=== PATIENT | female | born 1995 | race Caucasian/White ===

== ENCOUNTER 2017-07-25 09:30 | Outpatient (CLI) | payer OTHER ==
--- NOTE | 2017-07-25 10:31 | Progress Note ---
Progress Note Date of Service Jul 25, 2017. Progress Note Outpatient Note 21 F P0000 at 40.6 weeks seen in L&D to r/o labor. No contractions noted on monitor. CErvix 1/50/-2/posterior. FHT Cat 1. GBS is negative. Will d/c home. Patient is scheduled for IOL in AM and is to call then. Istructions to call back if in labor or any change.
[2017-07-26] MEDS ORDERED: PRENTAB26 PO (09:50)
== END 2017-07-25 11:00 | disposition home or self-care (01) ==
LOC: C.OPB 09:30 → C.LD 09:31 → C.OPB 11:00
PROVIDERS: ATTEND Obstetrics & Gynecology
DX: Z34.03 Encounter for supervision of normal first pregnancy, third trimester (principal); Z3A.40 40 weeks gestation of pregnancy

== ENCOUNTER 2017-07-26 08:46 | Inpatient (IN) | payer OTHER ==
[~2017-07-26] VITALS: Ht 175.3 cm; Wt 102.1 kg
[2017-07-26] MEDS ORDERED: LACTATED RINGER'S 1000ML 1,000 ML IV PRN (09:19)
[2017-07-26] MEDS ORDERED: LACTATED RINGER'S 1000ML 500 ML IV PRN ×2 (09:35→11:24)
[2017-07-26] MEDS ORDERED: OXYTOCIN 30 UNITS/500ML NSS IV PRN ×2 (09:45→21:45)
[2017-07-26 09:50] VITALS: Ht 175.3 cm; Wt 102.1 kg
[2017-07-26] MEDS ORDERED: PRENTAB26 PO (09:50)
[2017-07-26] MEDS ORDERED: BUPIVACAINE 0.25% 30 ML VIAL ONE (10:10)
[2017-07-26] MEDS ORDERED: FENTANYL CITRATE INJ 50 MCG/1 ML 2 ML VIAL ONE (10:10)
[2017-07-26] MEDS ORDERED: FENTANYL 2MCG/ML ROPIV 1.25MG/ML 100ML BAG EPI ONE (10:10)
[2017-07-26] MEDS ORDERED: EpHEDrine SULFATE INJ 50 MG/ML AMP ONE (10:10)
[2017-07-26 10:13] LABS: HEMATOCRIT 38.2 % (37-47); MEAN CELL VOLUME 98.2 fL (80-100); MEAN CORPUSCULAR HEMOGLOBIN 32.1 pg (25-34); MEAN CORPUSCULAR HGB CONC 32.7 g/dl (32-36); MEAN PLATELET VOLUME 10.9 fL (7.4-10.4); PLATELET COUNT 155 K/uL (130-400); RED BLOOD COUNT 3.89 M/uL (4.2-5.4); WHITE BLOOD COUNT 9.74 K/uL (4.8-10.8)
[2017-07-26] MEDS: LACTATED RINGER'S 1000ML 1,000 ML IV SCH ×3 (11:03→17:58)
[2017-07-26] MEDS ORDERED: NALOXONE HCL INJ 1 MG in SODIUM CHLORIDE 0.9% 1000ML 1,000 ML IV PRN (11:24)
[2017-07-26] MEDS ORDERED: FENTANYL 2MCG/ML ROPIV 1.25MG/ML 100ML BAG EPI PRN (11:30)
[2017-07-26] MEDS ORDERED: NALOXONE HCL INJ 0.4 MG/1 ML VIAL/CARP IV PRN (11:30)
[2017-07-26] MEDS ORDERED: EpHEDrine SULFATE INJ 50 MG/ML AMP IV PRN (11:30)
[2017-07-26] MEDS ORDERED: NALBUPHINE HCL INJ 10 MG/ML AMP IV PRN (11:30)
[2017-07-26] MEDS ORDERED: PROMETHAZINE HCL INJ 6.25 MG in SODIUM CHLORIDE 0.9% 50ML 50 ML IV PRN (11:30)
[2017-07-26] MEDS ORDERED: ONDANSETRON INJ 2 MG/ML 2 ML VIAL IV PRN ×2 (11:30→21:45)
[2017-07-26] MEDS ORDERED: DiphenhydrAMINE HCL 50 MG/ML VIAL IV PRN (11:30)
[2017-07-26] MEDS ORDERED: INFLUENZA ADMINISTRATION CHARGE ONE (12:30)
[2017-07-26] MEDS ORDERED: INFLUENZA VIRUS QUAD VACCINE 0.5 ML SYR IM. ONE (12:30)
[2017-07-26] MEDS ORDERED: CALCIUM CARBONATE 500 MG CHEWABLE PO ONE (18:00)
[2017-07-26] MEDS ORDERED: NURSING VERBAL MED ORDER ONE ×2 (18:00→19:30)
[2017-07-26] MEDS ORDERED: ACETAMINOPHEN 325 MG TAB PO ONE (19:45)
[2017-07-26] MEDS ORDERED: METHYLERGONOVINE MALEATE 0.2 MG/ML AMP ONE (21:13)
[2017-07-26] MEDS ORDERED: SUPERCREAM 0.870 % 15GM JAR EXT PRN (21:45)
[2017-07-26] MEDS ORDERED: METHYLERGONOVINE MALEATE 0.2 MG/ML AMP IM ONE (21:45)
[2017-07-26] MEDS ORDERED: OXYCODONE/ACETAMINOPHEN 5-325 TAB PO PRN (21:45)
[2017-07-26] MEDS ORDERED: BENZOCAINE 20% AER SPR 82.5 GM CAN EXT PRN (21:45)
[2017-07-26] MEDS ORDERED: LANOLIN OINT EXT PRN ×2 (21:45)
[2017-07-26] MEDS ORDERED: ACETAMINOPHEN/CODEINE 300/30MG TAB PO PRN ×2 (21:45)
[2017-07-26] MEDS ORDERED: HYDROCORTISONE ACETATE 25 MG SUPP PR PRN (21:45)
[2017-07-26] MEDS ORDERED: ACETAMINOPHEN 325 MG TAB PO PRN (21:45)
[2017-07-26] MEDS ORDERED: KETOROLAC TROMETHAMINE 30 MG/ML VIAL IV PRN (21:45)
[2017-07-26] MEDS ORDERED: DIPHTHERIA/TETANUS/PERTUSSIS 0.5 ML SYR/VIAL IM. ONE (21:45)
--- NOTE | 2017-07-26 21:53 | DELIVERY SUMMARY ---
DATE OF OPERATION: 07/26/2017 TIME OF DELIVERY: 2108 DELIVERY OF PLACENTA: 2110 DELIVERY NOTE: The patient is a 21-year-old 1 para 0 at 41 weeks gestation, who was admitted to labor and delivery on the morning of 07/26/2017, for a scheduled induction of labor secondary to postdates. On admission, she was found to be 5 cm, 80% effaced and -1 station. Oxytocin per protocol was used for labor induction. She received an epidural for anesthesia. Artificial rupture of membranes was performed at 1322 with clear amniotic fluid noted. She reached complete dilation at 1852. She pushed to delivery at 2108. She delivered a viable male in the right occiput anterior position to an intact perineum. The baby was delivered and placed on patient's abdomen. Cord was clamped x2 and cut. Apgars were 8 at one minute and 9 at five minutes. Please see nursing notes for further baby assessment. Cord blood was then obtained and an intact placenta with 3-vessel cord was delivered. Oxytocin infusion was then begun. The lower uterine segment and vagina were cleared of any blood clot and debris. She was given Methergine 0.25 mg IM due to increased bleeding. Uterine massage was performed. Excellent uterine tone was noted. Once bleeding was controlled, exploration of the perineum noted a first degree vaginal laceration and a right periurethral laceration, both were injected with lidocaine for anesthesia and were repaired with 2-0 Vicryl and 3-0 Vicryl suture in continuous running fashion. Excellent hemostasis was noted. No other lacerations were seen. ESTIMATED BLOOD LOSS: 350 mL. All sponge, instrument and needle counts were found to be correct x2. Both patient and baby tolerated the delivery well and were in Recovery with stable vital signs. I attest to the content of the Intraoperative Record and any orders documented therein. Any exception s are noted below.
--- NOTE | 2017-07-27 03:22 | Anesthesia Procedure Note ---
Anesthesia Epidural Removal Nt Date & Time Jul 27, 2017 at 03:22 Vital Signs Pain Intensity: 0.0 Notes Mental Status: alert / awake / arousable, participated in evaluation Nausea / Vomiting: adequately controlled Pain: adequately controlled Airway Patency, RR, SpO2: stable & adequate BP & HR: stable & adequate Hydration State: stable & adequate Neuraxial Anesthesia: was administered Anesthetic Complications: no major complications apparent, pt satisfied with anesthetic care Epidural: removed without complications, with tip intact
[2017-07-27] MEDS: PRENATAL VITAMIN TAB PO SCH (07:40)
[2017-07-27] MEDS: DOCUSATE SODIUM 100 MG CAP PO SCH ×2 (07:40→19:49)
[2017-07-27] MEDS: IBUPROFEN 600 MG TAB PO PRN ×2 (07:40→16:12)
[2017-07-27] MEDS: FERROUS SULFATE 325 MG TAB PO SCH (07:40)
[2017-07-27 07:53] VITALS: BP 116/56; PULSE 107; TEMP 37.4
[2017-07-27 07:58] LABS: HEMATOCRIT 35.2 % (37-47)
--- NOTE | 2017-07-27 09:40 | OB/GYN Progress Note ---
MANGLE ROLLER Progress Note Date of Service Jul 27, 2017. Objective Vital Signs Date Time Temp Pulse Resp B/P (MAP) Pulse Ox O2 Delivery O2 Flow Rate FiO2 07/27/17 07:53 Room Air 07/27/17 07:53 37.4 107 20 116/56 (76) Room Air Physical Exam General Appearance: WELL-APPEARING, NO APPARENT DISTRESS Abdomen: non tender Fundus: Firm Extremities: normal range of motion, non-tender, normal inspection, no pedal edema Laboratory Results Last 24 Hours Test 07/26/17 09:59 07/27/17 07:35 White Blood Count 9.74 K/uL Red Blood Count 3.89 M/uL Hemoglobin 12.5 g/dL 11.4 g/dL Hematocrit 38.2 % 35.2 % Mean Corpuscular Volume 98.2 fL Mean Corpuscular Hemoglobin 32.1 pg Mean Corpuscular Hemoglobin Concent 32.7 g/dl RDW Standard Deviation 50.2 fL RDW Coefficient of Variation 14.0 % Platelet Count 155 K/uL Mean Platelet Volume 10.9 fL Assessment and Plan Post- Day Number: 1 Continue Routine Care: tent d/c in AM
[2017-07-27 13:24] VITALS: BP 119/68; PULSE 107; TEMP 36.7
[2017-07-27 15:45] VITALS: BP 112/72; PULSE 104; TEMP 36.9; O2SAT 98
[2017-07-27] MEDS ORDERED: BISACODYL 5 MG TABEC PO SCH (20:00)
[2017-07-28 00:15] VITALS: BP 104/64; PULSE 84; TEMP 36.5
[2017-07-28] MEDS ORDERED: BISACODYL 10 MG SUPP PR PRN (07:00)
[2017-07-28 07:54] LABS: MEAN CELL VOLUME 96.9 fL (80-100); MEAN CORPUSCULAR HEMOGLOBIN 32.5 pg (25-34); MEAN CORPUSCULAR HGB CONC 33.5 g/dl (32-36); MEAN PLATELET VOLUME 10.7 fL (7.4-10.4); PLATELET COUNT 131 K/uL (130-400); WHITE BLOOD COUNT 9.18 K/uL (4.8-10.8)
[2017-07-28 08:00] VITALS: BP 118/71; PULSE 78; TEMP 36.8
[2017-07-28] MEDS: FERROUS SULFATE 325 MG TAB PO SCH (08:21)
[2017-07-28] MEDS: DOCUSATE SODIUM 100 MG CAP PO SCH (08:21)
[2017-07-28] MEDS: PRENATAL VITAMIN TAB PO SCH (08:21)
--- NOTE | 2017-07-28 10:37 | OB/GYN Progress Note ---
FANCY STITCHER Progress Note Date of Service Jul 28, 2017. Subjective conversation w/ patient, physical exam Ambulation: ambulating normally Voiding: no voiding problems Passing Gas: Yes Diet Tolerance: Regular Diet Lochia: Moderate Feeding Type: Breast Feeding Review of Systems Constitutional: No fever, No chills, No sweats, No weight loss, No weakness, No fatigue, No problem reported Respiratory: No cough, No sputum, No wheezing, No shortness of breath, No dyspnea on exertion, No dyspnea at rest, No hemoptysis, No problem reported Cardiac: No chest pain, No orthopnea, No PND, No edema, No claudication, No palpitations, No problem reported Breast: No see HPI, No breast lump, No change in shape, No nipple discharge, No breast pain, No problem reported Abdomen: No pain, No nausea, No vomiting, No diarrhea, No constipation, No GI bleeding, No problem reported Female : No see HPI, No dysuria, No urinary frequency, No hematuria, No incontinence, No abnormal vaginal bleeding, No vaginal discharge, No problem reported Objective Vital Signs Date Time Temp Pulse Resp B/P (MAP) Pulse Ox O2 Delivery O2 Flow Rate FiO2 07/28/17 00:15 36.5 84 16 104/64 (77) Room Air 07/28/17 00:15 Room Air 07/27/17 15:45 Room Air 07/27/17 15:45 36.9 104 18 112/72 (85) 98 Room Air 07/27/17 13:24 36.7 107 18 119/68 (85) Physical Exam General Appearance: WELL-APPEARING, WD/WN, NO APPARENT DISTRESS Respiratory/Chest: chest non-tender, lungs clear, normal breath sounds, no respiratory distress, no accessory muscle use Cardiovascular: regular rate, rhythm, no edema, no gallop, no JVD, no murmur Abdomen: normal bowel sounds, non tender, soft, no organomegaly, no pulsatile mass Fundus: Firm Extremities: normal range of motion, non-tender, normal inspection, no pedal edema, no calf tenderness Laboratory Results Last 24 Hours Test 07/28/17 07:14 White Blood Count 9.18 K/uL Red Blood Count 3.20 M/uL Hemoglobin 10.4 g/dL Hematocrit 31.0 % Mean Corpuscular Volume 96.9 fL Mean Corpuscular Hemoglobin 32.5 pg Mean Corpuscular Hemoglobin Concent 33.5 g/dl RDW Standard Deviation 48.5 fL RDW Coefficient of Variation 13.8 % Platelet Count 131 K/uL Mean Platelet Volume 10.7 fL Assessment and Plan Post- Day Number: 2 Continue Routine Care: PPD #2 pt doing well d/c home with instructions
[2017-07-28] MEDS ORDERED: MTR600X PO (10:38)
--- NOTE | 2017-07-28 10:40 | Discharge Instructions ---
Discharge Instructions Date of Service Jul 28, 2017. Admission Reason for Admission: Induction Discharge Discharge Diagnosis / Problem: Discharge Goals Goal(s): Routine recovery after delivery, Specific Goal(s) Activity Recommendations Activity Limitations: as noted below ACTIVITY RECOMMENDATIONS: * Gradual return to full activity over the next 2-3 weeks. * No lifting - nothing heavier than baby over the next 2-3 weeks. * Do not engage in vigorous exercise, sexual activity or sports until cleared by your physician. * Do not drive or operate any motorized equipment until cleared by your physician. * You may shower/bathe daily. BREAST CARE: If you are not breast feeding: * Wear a supportive bra 24 hours a day for one to two weeks. * Avoid stimulating your breasts and nipples as much as possible during the first few weeks after delivery. * When taking a shower, have the warm water hit your back, not breasts. * When your breasts feel full, apply ice packs. Usually three to four times a day helps ease the discomfort. * Take a mild pain medication (Tylenol/Motrin) when you are uncomfortable. If breast feeding: * Use breast milk to lubricate nipples. Lansinoh cream may be used for sore nipples. You do not need to remove cream prior to breast feeding. If using a different brand of cream, check the label for directions regarding removal of cream prior to nursing. * Wear a supportive bra. * If having problems with breasts or breast feeding, call a service delivery management consultant or your health care provider. EPISIOTOMY CARE: After delivery, if you have an episiotomy (stitches), the following steps will ease discomfort and aid healing. * For the first 24 hours after delivery, place ice packs next to your episiotomy to help reduce swelling. * After the first 24 hour-period, sitz baths, either portable or in the tub, are suggested. A shower with a shower arm sprayed over the episiotomy may be comforting. * Shanti care should be done after each voiding and bowel movement. Squirt warm water from a plastic bottle over the perineum (region of the body between the anus and urinary opening) and pat dry. * Use Dermoplast to ease discomfort. Shake container. [place] directly over the episiotomy. * Place a Tucks on a clean sanitary pad next to your episiotomy. OVER THE COUNTER MEDICATION: * For discomfort or pain, you may use Acetaminophen (Tylenol), Ibuprofen (Advil ), or Naproxen (Aleve) following the package directions. * For constipation you may use Colace following the package directions. SPECIAL CARE INSTRUCTIONS: When you are discharged from the hospital, it is important for you to follow the instructions listed below: * During the first week at home, you should be able to care for yourself and your baby. In addition, the usual light household activities are encouraged. * Limit your activities to the way you feel. Do not try to clean the house or move furniture. Be sensible. * If you actively engage in sports and have done so up until the time of your delivery, you may resume these activities as soon as you feel able. This may take up to one month or even longer. Use good judgment. * Continue to take your vitamins for at least six weeks after the of your baby. * Your diet need not be limited unless you were on a special diet before your delivery. Breast-feeding mothers need around 2500 calories per day and at least 64-80 ounces of fluid per day (8 to 10 glasses). * You should eat foods from the four major food groups. Crash diets or fad diets are to be avoided. Eating lean meats, fresh fruits and vegetables, low-fat dairy products, high fiber foods and a regular exercise program, will help you get back to your pre- weight without putting your health at risk. * Constipation is sometimes a problem after delivery. Take a mild laxative as needed. If breast feeding, Milk of Magnesia is acceptable to use. You may use a suppository or Fleets enema if no episiotomy. * A daily shower or tub bath is suggested. Be sure to thoroughly and gently dry the perineum. * A bloody vaginal discharge will usually continue until around four weeks post . A small amount of bleeding may continue for as long as six weeks. Vaginal discharge changes from the bright red bleeding after delivery to pink then brownish and finally yellowish-pink before becoming white and disappearing. * Bleeding may increase with activity. Your first period may come in 4-8 weeks. If you are breast feeding, your period may be delayed even longer. * [place] (sex) can begin whenever both you and your partner feel comfortable and do not have any form of genital infection. It is recommended that you wait until after your return appointment and discuss with your physician. If you have questions, please talk to your health care practitioner. A condom should be used to prevent infection and . * Foreplay, gentle intercourse and lubrication is very important the first several times to prevent pain. A water-based lubricant such as K-Y jelly or Astroglide may be used. * Tampons may be used six weeks after delivery. * Douching should be avoided for 6 weeks after delivery. * If you have RH negative blood and your baby is RH positive, you will receive RHOGAM by injection prior to discharge. The nurse will give you a card to keep with you that has the date and place that you received RHOGAM after delivery. * During your care, you had a Rubella screen done to check for the presence of rubella antibodies in your blood. If your test was negative, you will receive a Rubella vaccine prior to discharge. This vaccine may cause a fever, soreness at the injection site and flu-like symptoms. If these symptoms persist, notify your health care practitioner. is not advised for three months after a Rubella vaccine. There is a higher chance of having a baby with defects if conceived within three months of getting the vaccine. * If you were discharged 24 hours from delivery or before 48 hours: Visiting nurses will come to your home 48 hours after discharge to assess you and your baby. The visiting nurse will meet with you while you are in the hospital to arrange a time and get directions to your home. * Verbalizes understanding of car seat law as reviewed with patient nursing. * Car Seat hand-out given and reviewed with patient by nursing. * Shaken baby information reviewed with patient by nursing. Call you doctor if: * Heavy bleeding (saturating several pads an hour) or passing clots the size of your fist. * A fever >101 degrees F (38.3 degrees C) on two occasions four hours apart and/or chills. * Unusual pain in the pelvic or vaginal areas. * "Baby Blues" lasting longer than two weeks. If you have any questions or concerns, call your health care practitioner at . FOLLOW-UP VISIT: * Please call the office at to schedule a 6 week examination. It is important you keep this appointment. * It is important for you to make arrangements for either yearly or twice yearly check-ups thereafter. . Current Hospital Diet Patient's current hospital diet: Regular OB Diet Discharge Diet Recommended Diet: Regular Diet Pending Studies Studies pending at discharge: no Medical Emergencies . Who to Call and When: Medical Emergencies: If at any time you feel your situation is an emergency, please call 911 immediately. . Non-Emergent Contact Non-Emergency issues call your: Specialist . . "Provider Documentation" section prepared by Cecilio Smith. . VTE Core Measure Inpt VTE Proph given/why not?: Treatment not indicated
[2017-07-28 14:05] VITALS: BP_DIAS 71; PULSE 78; TEMP 36.8
== END 2017-07-28 14:45 | disposition home or self-care (01) | DRG 775 ==
LOC: C.LD 08:46 → C.OBG 07-27 16:06
PROVIDERS: ADMIT Obstetrics & Gynecology; ATTEND Obstetrics & Gynecology
PROC: 0UQMXZZ Repair Vulva, External Approach (ICD-10-PCS; principal; 2017-07-26)
PROC: 10E0XZZ Delivery of Products of Conception, External Approach (ICD-10-PCS; principal; 2017-07-26)
PROC: 3E033VJ Introduction of Other Hormone into Peripheral Vein, Percutaneous Approach (ICD-10-PCS; 2017-07-26)
PROC: 10903ZC Drainage of Amniotic Fluid, Therapeutic from Products of Conception, Percutaneous Approach (ICD-10-PCS; 2017-07-26)
DX: O48.0 Post-term pregnancy (principal); O71.82 Other specified trauma to perineum and vulva; Z3A.41 41 weeks gestation of pregnancy; Z37.0 Single live birth

== ENCOUNTER 2022-01-16 04:55 | Inpatient (IN) ==
[2022-01-16] MEDS ORDERED: OXYTOCIN 30 UNITS/500 ML BAG IV PRN ×3 (05:16→14:58)
[2022-01-16] MEDS: LACTATED RINGER'S 1,000 ML IV PRN ×2 (05:38→06:40)
[2022-01-16 05:46] LABS: Hematocrit (blood only) 38.8 % (37-47); Hemoglobin 13.1 g/dL (12.0-16.0); Mean Corpuscular Hemoglobin 32.4 pg (25-34); Mean Corpuscular Hgb Conc 33.8 g/dL (32-36); Mean Platelet Volume 10.5 fL (7.4-10.4); Platelet Count 189 K/uL (130-400); RDW Coefficient of Variation 14.1 % (11.5-14.5); RDW Standard Deviation 49.3 fL (36.4-46.3); Red Blood Count 4.04 M/uL (4.2-5.4); White Blood Count 10.48 K/uL (4.8-10.8)
[2022-01-16] MEDS ORDERED: fentaNYL citrate 100 MCG/2 ML VIAL ONE (05:50)
[2022-01-16] MEDS ORDERED: BUPIVACAINE 0.25% 30 ML VIAL ONE (05:50)
[2022-01-16] MEDS ORDERED: fentaNYL 2MCG/ML ROPIVACAINE 1.25MG/ML 100 ML BAG EPI ONE (05:50)
[2022-01-16] MEDS ORDERED: SODIUM CHLORIDE 0.9% INJ 10 ML VIAL ONE (05:50)
[2022-01-16] MEDS ORDERED: ePHEDrine sulfate 50 MG/ML AMP ONE (05:50)
[2022-01-16] MEDS ORDERED: ePHEDrine sulfate 50 MG/ML AMP IV PRN (06:44)
[2022-01-16] MEDS ORDERED: NALOXONE HCL 0.4 MG/1 ML VIAL/CARP IV PRN (06:44)
[2022-01-16] MEDS ORDERED: NALOXONE HCL 1 MG in SODIUM CHLORIDE 0.9% 1000ML 1,000 ML IV PRN (06:44)
[2022-01-16] MEDS ORDERED: fentaNYL 2MCG/ML ROPIVACAINE 1.25MG/ML 100 ML BAG EPI PRN (06:44)
[2022-01-16] MEDS ORDERED: NALBUPHINE HCL INJ 10 MG/ML AMP IV PRN (06:44)
[2022-01-16] MEDS ORDERED: ONDANSETRON INJ 2 MG/ML 2 ML VIAL IV PRN (06:44)
[2022-01-16] MEDS ORDERED: diphenhydrAMINE 50 MG/ML VIAL IV PRN (06:44)
--- NOTE | 2022-01-16 06:44 | Anesthesiology Consultation ---
Date of Service January 16, 2022 Assessment & Plan Chart Review Chart Review: Patient NOT seen in Pre Admission Testing and Acceptable Risk for Labor Epidural Consults Requested none ASA ASA2 Proposed Anesthesia Anesthesia Type: Labor Epidural Risk / Benefits Reviewed With: PT / POA / Parent / Guardian, Accepts Plan and Informed Consent Obtained History Height/Weight Height: 5 ft 9 in Weight: 109.769 kg Allergies Allergy/AdvReac Type Severity Reaction Status Date / Time No Known Allergies Allergy Unverified 07/26/17 09:48 Medications Home Medications Medication Instructions Recorded Confirmed Last Taken ondansetron HCl 4 mg tablet 4 mg PO Q6H PRN 01/16/22 01/16/22 Unknown vit no.95-ferrous 1 tab PO DAILY 01/16/22 01/16/22 01/15/22 fumarate 28 mg-folic acid 800 mcg tablet () Active Medications Generic Name Dose Route Start Last Admin Trade Name Freq PRN Reason Stop Dose Admin Lactated Ringer's 1,000 mls @ 125 mls/hr 01/16/22 05:16 01/16/22 06:40 Lr IV 01/18/22 05:15 125 mls/hr .Q8H PRN Administration L&D Protocol Protocol Exercise / Class Metabolic Activity II 4-5 Yardwork/Stairs/Walk up hill Past Anesthesia History No Hx of Anesthesia Complications and No Family Hx of Anesthesia Complications History of PONV No Hx of PONV and No Hx of Motion Sickness Social History Smoking Status: Former smoker Hx Alcohol Use: No Hx Substance Use: No Physical Exam Vital Signs Last Vital Signs Temp 36.9 C 01/16/22 05:22 Resp 18 01/16/22 05:22 ENMT Mouth: no dentition abnormality Thyromental Distance: > or= 3.5 Finger Breadths Mallampati Class: II Neck normal visual inspection Respiratory normal respiratory effort Auscultation: lungs clear to auscultation bilaterally Cardiovascular Rate/Rhythm: regular rate and regular rhythm Psychiatric Orientation: alert Testing Laboratory Results 01/16/22 05:27
--- NOTE | 2022-01-16 07:42 | History & Physical Report ---
Date of Service January 16, 2022 Assessment & Plan (1) Post-dates : (2) Active labor at term: Plan: Yudith 6-year-old -0-0-1 at 40 weeks and 3 days of gestation presented to labor and delivery in active labor with contractions, Vital signs stable afebrile, heart rate reassuring, GBS negative, Epidural for pain, Continue to monitor closely and anticipate . Admission and Anticipated Discharge Date Admission Date: January 16, 2022 History of Present Illness Primary Care Provider: Mathew Burger MD Patient is a 26-year-old -0-0-1 at 40 weeks and 3 days of gestation who presented to labor and delivery with painful contractions and was asking for epidural for pain and admitted for labor. Denied leakage of fluid or vaginal bleeding. She reported good movements. Her has been uncomplicated, History of depression prior to , off meds and has been feeling well. GBS negative Allergies Allergy/AdvReac Type Severity Reaction Status Date / Time No Known Allergies Allergy Unverified 07/26/17 09:48 Home Medications Medication Instructions Recorded Confirmed Type ondansetron HCl 4 mg tablet 4 mg PO Q6H PRN 01/16/22 01/16/22 History vit no.95-ferrous 1 tab PO DAILY 01/16/22 01/16/22 History fumarate 28 mg-folic acid 800 mcg tablet () Patient History Social History Smoking Status: Former smoker Tobacco Type: Cigarettes Hx Alcohol Use: No Hx Substance Use: No Preferred Language: Cameroonian Communication Ability: Effective Insurance Salesman Required: No Beliefs That Will Affect Care: None marital status: Single Current Living Situation: Family Current Living Situation Comment: lives with son Other Information That Helps Us Care for You: No Feels Safe at Home: Yes Safety Concerns: Feels Safe At This Time Assistive Devices: Glasses OB History Full-term in 2017, viable male , 8 pounds 15 ounces. ALTERATION SPECIALIST History Denies any history of STDs, denies genital herpes, chlamydia, gonorrhea. Review of Systems as per Subjective / HPI Physical Exam Constitutional: WD/WN, vitals as above well developed, well nourished, + acute distress (With contractions only) and + obese Genitourinary: normal external appearance OB Exam Abdomen: + vertex Man ual OB Exam: + cervical dilation 5 cm, + cervical effacement 80% and + station - 2 OB Exam Monitor Tracing: + external uterine monitor used and + category I Results & Data ([facility]) Vital Signs (Past 12 Hours) Vital Signs Temp Pulse Resp BP Pulse Ox 01/16/22 07:30 99 H 96 01/16/22 07:18 107 H 115/67 97 01/16/22 07:13 104 H 96 01/16/22 05:22 36.9 C 18 Laboratory Results Lab Results 01/16/22 01/16/22 Range/Units 05:10 05:27 WBC 10.48 (4.8-10.8) K/uL RBC 4.04 L (4.2-5.4) M/uL Hgb 13.1 (12.0-16.0) g/dL Hct 38.8 (37-47) % MCV 96.0 (80-100) fL MCH 32.4 (25-34) pg MCHC 33.8 (32-36) g/dL RDW Std Deviation 49.3 H (36.4-46.3) fL RDW Coeff of Fauzia 14.1 (11.5-14.5) % Plt Count 189 (130-400) K/uL MPV 10.5 H (7.4-10.4) fL SARS-CoV-2, RNA, NAAT NEGATIVE (NEGATIVE)
[2022-01-16] MEDS ORDERED: ACETAMINOPHEN 500 MG TAB PO PRN (12:28)
--- NOTE | 2022-01-16 13:07 | Labor Progress Brief Note ---
Date of Service January 16, 2022 Assessment & Plan Admission and Anticipated Discharge Date Admission Date: January 16, 2022 Physical Exam Genitourinary: Manual OB Exam: + cervical dilation 8 cm, + cervical effacement 100% and + station -1 OB Exam Monitor Tracing: + external FHT monitor used, + external uterine monitor used, + category I and + normal FHT variability Results & Data ([facility]) Vital Signs (Past 12 Hours) Vital Signs Temp Pulse Resp BP Pulse Ox 01/16/22 13:01 82 119/73 96 01/16/22 12:56 110 H 97 01/16/22 12:51 100 H 96 01/16/22 12:47 103 H 117/68 01/16/22 12:46 101 H 97 01/16/22 12:41 106 H 96 01/16/22 12:36 111 H 97 01/16/22 12:32 115 H 115/62 01/16/22 12:31 115 H 97 01/16/22 12:26 113 H 97 01/16/22 12:21 102 H 109/60 96 01/16/22 12:18 104 H 153/67 H 01/16/22 12:16 117 H 97 01/16/22 12:11 101 H 96 01/16/22 12:06 97 H 95 01/16/22 12:01 103 H 105/58 L 97 01/16/22 11:56 105 H 96 01/16/22 11:51 112 H 97 01/16/22 11:46 93 H 95/50 L 95 01/16/22 11:45 18 01/16/22 11:41 90 95 01/16/22 11:36 96 H 96 01/16/22 11:32 94 H 93/53 L 01/16/22 11:31 101 H 96 01/16/22 11:26 85 95 01/16/22 11:21 96 H 96 01/16/22 11:16 82 98/56 L 95 01/16/22 11:15 36.9 C 01/16/22 11:11 94 H 94 01/16/22 11:06 100 H 94 01/16/22 11:03 93 H 100/56 L 01/16/22 11:01 93 H 18 87/53 L 96 01/16/22 10:56 105 H 96 01/16/22 10:51 92 H 96 01/16/22 10:47 18 01/16/22 10:46 98 H 93/54 L 96 01/16/22 10:41 82 97 01/16/22 10:36 101 H 96 01/16/22 10:32 95 H 18 93/55 L 01/16/22 10:31 90 96 01/16/22 10:26 100 H 95 01/16/22 10:21 104 H 96 01/16/22 10:17 90 18 109/72 01/16/22 10:16 101 H 97 01/16/22 10:11 94 H 98 01/16/22 10:06 99 H 96 01/16/22 10:01 98 H 107/69 98 01/16/22 09:56 93 H 98 01/16/22 09:51 98 H 96 01/16/22 09:48 18 01/16/22 09:47 93 H 105/72 01/16/22 09:46 94 H 96 01/16/22 09:41 92 H 98 01/16/22 09:36 90 97 01/16/22 09:33 18 01/16/22 09:32 111 H 119/72 01/16/22 09:31 100 H 98 01/16/22 09:26 103 H 97 01/16/22 09:21 98 H 97 01/16/22 09:17 18 01/16/22 09:16 101 H 108/68 97 01/16/22 09:11 99 H 97 01/16/22 09:06 99 H 97 01/16/22 09:01 20 01/16/22 08:56 101 H 98 01/16/22 08:51 112 H 98 01/16/22 08:47 102 H 18 117/63 01/16/22 08:46 103 H 97 01/16/22 08:41 106 H 97 01/16/22 08:36 109 H 97 01/16/22 08:31 107 H 109/63 96 01/16/22 08:11 97 H 96 01/16/22 08:06 95 H 95 01/16/22 08:01 110 H 95 01/16/22 07:56 110 H 95 01/16/22 07:51 107 H 96 01/16/22 07:46 102 H 96 01/16/22 07:41 108 H 113/61 96 03/19/22 07:30 99 H 96 01/16/22 07:18 107 H 115/67 97 01/16/22 07:13 104 H 96 01/16/22 07:10 36.7 C 18 01/16/22 05:22 36.9 C 18
--- NOTE | 2022-01-16 14:32 | Labor Progress Brief Note ---
Date of Service January 16, 2022 Assessment & Plan Admission and Anticipated Discharge Date Admission Date: January 16, 2022 Physical Exam Genitourinary: Manual OB Exam: + cervical dilation 10 cm, + cervical effacement 100% and + station + 1 OB Exam Monitor Tracing: + external FHT monitor used, + external uterine monitor used, + category I and + normal FHT variability will start to push Results & Data ([facility]) Vital Signs (Past 12 Hours) Vital Signs Temp Pulse Resp BP Pulse Ox 01/16/22 14:26 96 H 98 01/16/22 14:21 94 H 97 01/16/22 14:18 90 107/55 L 01/16/22 14:16 90 95 01/16/22 14:11 99 H 96 01/16/22 14:06 88 97 01/16/22 14:01 97 H 111/68 96 01/16/22 13:56 100 H 97 01/16/22 13:51 92 H 98 01/16/22 13:47 85 114/69 01/16/22 13:46 87 96 01/16/22 13:45 18 01/16/22 13:41 93 H 96 01/16/22 13:36 101 H 98 01/16/22 13:32 100 H 116/66 01/16/22 13:31 97 H 97 01/16/22 13:26 100 H 97 01/16/22 13:21 102 H 97 01/16/22 13:17 99 H 110/60 01/16/22 13:16 101 H 97 01/16/22 13:11 104 H 97 01/16/22 13:06 98 H 97 01/16/22 13:01 82 119/73 96 01/16/22 12:56 110 H 97 01/16/22 12:51 100 H 96 01/16/22 12:48 18 01/16/22 12:47 103 H 117/68 01/16/22 12:46 101 H 97 01/16/22 12:41 106 H 96 01/16/22 12:36 111 H 97 01/16/22 12:32 115 H 115/62 01/16/22 12:31 115 H 97 01/16/22 12:26 113 H 97 01/16/22 12:21 102 H 109/60 96 01/16/22 12:18 104 H 153/67 H 01/16/22 12:16 117 H 97 01/16/22 12:11 101 H 96 01/16/22 12:06 97 H 95 01/16/22 12:01 103 H 105/58 L 97 01/16/22 11:56 105 H 96 01/16/22 11:51 112 H 97 01/16/22 11:46 93 H 95/50 L 95 01/16/22 11:45 18 01/16/22 11:41 90 95 01/16/22 11:36 96 H 96 01/16/22 11:32 94 H 93/53 L 01/16/22 11:31 101 H 96 01/16/22 11:26 85 95 01/16/22 11:21 96 H 96 01/16/22 11:16 82 98/56 L 95 01/16/22 11:15 36.9 C 01/16/22 11:11 94 H 94 01/16/22 11:06 100 H 94 01/16/22 11:03 93 H 100/56 L 01/16/22 11:01 93 H 18 87/53 L 96 01/16/22 10:56 105 H 96 01/16/22 10:51 92 H 96 01/16/22 10:47 18 01/16/22 10:46 98 H 93/54 L 96 01/16/22 10:41 82 97 01/16/22 10:36 101 H 96 01/16/22 10:32 95 H 18 93/55 L 01/16/22 10:31 90 96 01/16/22 10:26 100 H 95 01/16/22 10:21 104 H 96 01/16/22 10:17 90 18 109/72 01/16/22 10:16 101 H 97 01/16/22 10:11 94 H 98 01/16/22 10:06 99 H 96 01/16/22 10:01 98 H 107/69 98 01/16/22 09:56 93 H 98 01/16/22 09:51 98 H 96 01/16/22 09:48 18 01/16/22 09:47 93 H 105/72 01/16/22 09:46 94 H 96 01/16/22 09:41 92 H 98 01/16/22 09:36 90 97 01/16/22 09:33 18 01/16/22 09:32 111 H 119/72 01/16/22 09:31 100 H 98 01/16/22 09:26 103 H 97 01/16/22 09:21 98 H 97 01/16/22 09:17 18 01/16/22 09:16 101 H 108/68 97 01/16/22 09:11 99 H 97 01/16/22 09:06 99 H 97 01/16/22 09:01 20 01/16/22 08:56 101 H 98 01/16/22 08:51 112 H 98 01/16/22 08:47 102 H 18 117/63 01/16/22 08:46 103 H 97 01/16/22 08:41 106 H 97 01/16/22 08:36 109 H 97 01/16/22 08:31 107 H 109/63 96 01/16/22 08:11 97 H 96 01/16/22 08:06 95 H 95 01/16/22 08:01 110 H 95 01/16/22 07:56 110 H 95 01/16/22 07:51 107 H 96 01/16/22 07:46 102 H 96 01/16/22 07:41 108 H 113/61 96 01/16/22 07:30 99 H 96 01/16/22 07:18 107 H 115/67 97 01/16/22 07:13 104 H 96 01/16/22 07:10 36.7 C 18 01/16/22 05:22 36.9 C 18
--- NOTE | 2022-01-16 14:57 | Delivery Summary ---
Vaginal Delivery Summary Date of Service January 16, 2022 Vaginal Delivery Summary Delivery Note live male FERN over intact perineum with delayed cord clamping and Apgars 9/9 weight pending. Cord blood obtained followed by spontaneous delivery of intact placenta. No tears. EBL 100 ml. final sponge and instrument count are correct. Mom and baby stable.
[2022-01-16] MEDS ORDERED: bisacodyL 10 MG SUPP PR PRN (14:58)
[2022-01-16] MEDS ORDERED: DIPHTHERIA/TETANUS/PERTUSSIS 0.5 ML SYR/VIAL IM ONE (14:58)
[2022-01-16] MEDS ORDERED: BENZOCAINE 20% AER SPR 82.5 GM CAN EXT PRN (14:58)
[2022-01-16] MEDS ORDERED: ACETAMINOPHEN 325 MG TAB PO PRN (14:58)
[2022-01-16] MEDS ORDERED: HYDROCORTISONE ACETATE 25 MG SUPP PR PRN (14:58)
[2022-01-16] MEDS ORDERED: ONDANSETRON 4 MG OD TAB PO PRN (15:02)
[2022-01-16] MEDS: IBUPROFEN 600 MG TAB PO PRN (15:40)
--- NOTE | 2022-01-16 15:48 | Anesthesiology Progress Note ---
Date of Service January 16, 2022 Anesthesia Post Procedure Vital Signs Vital Signs: Temp Pulse Resp BP Pulse Ox 01/16/22 15:46 101 H 103/55 L 96 01/16/22 15:41 104 H 95 01/16/22 15:36 99 H 95 01/16/22 15:31 96 H 112/60 88 L 01/16/22 15:30 92 H 109/63 01/16/22 15:26 97 H 95 01/16/22 15:21 107 H 96 01/16/22 15:16 102 H 96 01/16/22 15:11 92 H 96 01/16/22 15:06 101 H 95 01/16/22 15:01 94 H 97/60 L 95 01/16/22 14:56 106 H 100/63 96 01/16/22 14:51 109 H 96 01/16/22 14:46 105 H 106/61 96 01/16/22 14:41 108 H 93 01/16/22 14:36 102 H 96 01/16/22 14:32 90 109/62 01/16/22 14:31 99 H 99 01/16/22 14:26 96 H 98 01/16/22 14:21 94 H 97 01/16/22 14:18 90 107/55 L 01/16/22 14:16 90 95 01/16/22 14:11 99 H 96 01/16/22 14:06 88 97 01/16/22 14:01 97 H 111/68 96 01/16/22 13:56 100 H 97 01/16/22 13:51 92 H 98 01/16/22 13:47 85 114/69 01/16/22 13:46 87 96 01/16/22 13:45 18 01/16/22 13:41 93 H 96 01/16/22 13:36 101 H 98 01/16/22 13:32 100 H 116/66 01/16/22 13:31 97 H 97 01/16/22 13:26 100 H 97 01/16/22 13:21 102 H 97 01/16/22 13:17 99 H 110/60 01/16/22 13:16 101 H 97 01/16/22 13:11 104 H 97 01/16/22 13:06 98 H 97 01/16/22 13:01 82 119/73 96 01/16/22 12:56 110 H 97 01/16/22 12:51 100 H 96 01/16/22 12:48 18 01/16/22 12:47 103 H 117/68 01/16/22 12:46 101 H 97 01/16/22 12:41 106 H 96 01/16/22 12:36 111 H 97 01/16/22 12:32 115 H 115/62 01/16/22 12:31 115 H 97 01/16/22 12:26 113 H 97 01/16/22 12:21 102 H 109/60 96 01/16/22 12:18 104 H 153/67 H 01/16/22 12:16 117 H 97 01/16/22 12:11 101 H 96 01/16/22 12:06 97 H 95 01/16/22 12:01 103 H 105/58 L 97 01/16/22 11:56 105 H 96 01/16/22 11:51 112 H 97 01/16/22 11:46 93 H 95/50 L 95 01/16/22 11:45 18 01/16/22 11:41 90 95 01/16/22 11:36 96 H 96 01/16/22 11:32 94 H 93/53 L 01/16/22 11:31 101 H 96 01/16/22 11:26 85 95 01/16/22 11:21 96 H 96 01/16/22 11:16 82 98/56 L 95 01/16/22 11:15 36.9 C 01/16/22 11:11 94 H 94 01/16/22 11:06 100 H 94 01/16/22 11:03 93 H 100/56 L 01/16/22 11:01 93 H 18 87/53 L 96 01/16/22 10:56 105 H 96 01/16/22 10:51 92 H 96 01/16/22 10:47 18 01/16/22 10:46 98 H 93/54 L 96 01/16/22 10:41 82 97 01/16/22 10:36 101 H 96 01/16/22 10:32 95 H 18 93/55 L 01/16/22 10:31 90 96 01/16/22 10:26 100 H 95 01/16/22 10:21 104 H 96 01/16/22 10:17 90 18 109/72 03/19/22 10:16 101 H 97 01/16/22 10:11 94 H 98 01/16/22 10:06 99 H 96 01/16/22 10:01 98 H 107/69 98 01/16/22 09:56 93 H 98 01/16/22 09:51 98 H 96 01/16/22 09:48 18 01/16/22 09:47 93 H 105/72 01/16/22 09:46 94 H 96 01/16/22 09:41 92 H 98 01/16/22 09:36 90 97 01/16/22 09:33 18 01/16/22 09:32 111 H 119/72 01/16/22 09:31 100 H 98 01/16/22 09:26 103 H 97 01/16/22 09:21 98 H 97 01/16/22 09:17 18 01/16/22 09:16 101 H 108/68 97 01/16/22 09:11 99 H 97 01/16/22 09:06 99 H 97 01/16/22 09:01 20 01/16/22 08:56 101 H 98 01/16/22 08:51 112 H 98 01/16/22 08:47 102 H 18 117/63 01/16/22 08:46 103 H 97 01/16/22 08:41 106 H 97 01/16/22 08:36 109 H 97 01/16/22 08:31 107 H 109/63 96 01/16/22 08:11 97 H 96 01/16/22 08:06 95 H 95 01/16/22 08:01 110 H 95 01/16/22 07:56 110 H 95 01/16/22 07:51 107 H 96 01/16/22 07:46 102 H 96 01/16/22 07:41 108 H 113/61 96 01/16/22 07:30 99 H 96 01/16/22 07:18 107 H 115/67 97 01/16/22 07:13 104 H 96 01/16/22 07:10 36.7 C 18 01/16/22 05:22 36.9 C 18 Transfer of Care Handoff Completed per policy Notes Mental Status: alert / awake / arousable and participated in evaluation Patient Amnestic to Procedure: Yes Nausea / Vomiting: adequately controlled Pain: adequately controlled Airway Patency, RR, SpO2: stable & adequate BP & HR: stable & adequate Hydration State: stable & adequate Anesthetic Complications: no major complications apparent and Pt Satisfied with anesthetic care
[2022-01-16] MEDS: oxyCODONE/ACETAMINOPHEN 5mg/325mg TAB PO PRN (16:57)
[2022-01-16] MEDS: DOCUSATE SODIUM 100 MG CAP PO SCH (20:35)
[2022-01-17] MEDS: IBUPROFEN 600 MG TAB PO PRN (01:13)
[2022-01-17] MEDS: oxyCODONE/ACETAMINOPHEN 5mg/325mg TAB PO PRN (01:14)
[2022-01-17 06:53] LABS: Hematocrit (blood only) 34.7 % (37-47); Hemoglobin 11.5 g/dL (12.0-16.0); Mean Corpuscular Hemoglobin 32.4 pg (25-34); Mean Corpuscular Hgb Conc 33.1 g/dL (32-36); Mean Corpuscular Volume 97.7 fL (80-100); Mean Platelet Volume 10.6 fL (7.4-10.4); Platelet Count 138 K/uL (130-400); RDW Coefficient of Variation 13.9 % (11.5-14.5); RDW Standard Deviation 49.7 fL (36.4-46.3); Red Blood Count 3.55 M/uL (4.2-5.4)
[2022-01-17] MEDS: DOCUSATE SODIUM 100 MG CAP PO SCH (07:52)
[2022-01-17] MEDS ORDERED: PRENATAL VITAMIN 1 TAB PO SCH (08:00)
[2022-01-17] MEDS ORDERED: FERROUS SULFATE 325 MG TAB PO SCH (08:00)
[2022-01-17] MEDS ORDERED: NON-FORMULARY MEDICATION (Pnv Cmb#95-Ferrous Fumarate-Fa [Prenatal] 28 mg iron- 800 mcg Ta PO SCH (09:00)
--- NOTE | 2022-01-17 10:45 | Obstetrical Progress Note ---
Date of Service January 17, 2022 Subjective Ambulation: ambulating normally Voiding: no voiding problems Passing Gas:: Yes Diet Tolerance:: regular diet Lochia:: Small Feeding Type:: bottle feeding Current Pain Level(1-10): 0 doing well plans for d/c today after circ Physical Exam Constitutional WD/WN, vitals as above abdomen soft and non-tender fundus firm no edema neg Reilly's for d/c home Results & Data ([facility]) Vital Signs (Past 12 Hours) Vital Signs Temp Pulse Resp BP Pulse Ox 01/17/22 07:45 36.4 C L 96 H 18 120/73 01/17/22 04:45 36.4 C L 85 16 123/76 98 01/17/22 00:45 37.3 C 82 18 113/60 98 Laboratory Results Laboratory Results - last 72 hr 01/16/22 01/16/22 01/17/22 05:10 05:27 06:23 WBC 10.48 8.00 RBC 4.04 L 3.55 L Hgb 13.1 11.5 L Hct 38.8 34.7 L MCV 96.0 97.7 MCH 32.4 32.4 MCHC 33.8 33.1 RDW Std Deviation 49.3 H 49.7 H RDW Coeff of Fauzia 14.1 13.9 Plt Count 189 138 MPV 10.5 H 10.6 H SARS-CoV-2, RNA, NAAT NEGATIVE
[2022-01-17] MEDS ORDERED: bisacodyL 5 MG TABEC PO SCH (20:00)
== END 2022-01-17 16:10 | disposition home or self-care (01) | DRG 807 ==
LOC: OPB 04:55 → 4S1 05:02 → 4E1 18:43